=== PATIENT | male | born 1980 | race Caucasian/White ===

== ENCOUNTER → 2017-05-09 | Outpatient (CLI) | payer OTHER ==
--- NOTE | 2017-05-09 13:44 | US ---
EXAMINATION TYPE: US scrotum with doppler. Grayscale and color Doppler Duplex imaging performed of t he scrotum. DATE OF EXAM: 05/09/2017 COMPARISON: NONE CLINICAL HISTORY: N50.9 testicular mass. Palpable left testicular mass x 1 month EXAM MEASUREMENTS: TESTICLES: Right Testicle: 3.7 x 2.4 x 3.0 cm Left Testicle: 3.6 x 2.0 x 2.7 cm EPIDIDYMIS HEAD: Right Epididymis: 0.6 x 1.1 x 1.3 cm Left Epididymis: 0.7 x 1.0 x 1.2 cm Doppler performed to assess for testicular vascularity; good bilateral color flow and waveforms are s een. There is no evidence of testicular torsion. Presence of hydroceles: trace amount of fluid around bilateral testicles Presence of varicoceles: at patients palpable: prominent vessels inferior and posterior to left test icle that increase with valsalva IMPRESSION: 1. There are some vessels present the palpable region on the left compatible with varicoceles.
== END | disposition home or self-care (01) ==
LOC: RADUSWWP 12:35
PROVIDERS: ATTEND Family Medicine
DX: N50.9 Disorder of male genital organs, unspecified (principal)
CPT/HCPCS: 76870; 93975

== ENCOUNTER 2018-01-24 15:37 | Emergency (ER) | payer OTHER ==
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
[2018-01-24 19:03] VITALS: BP 105/76; PULSE 82; RESP 18; TEMP 98.6
== END 2018-01-24 19:00 | disposition home or self-care (01) ==
LOC: EC 15:37
DX: S09.90XA Unspecified injury of head, initial encounter (principal); Z79.899 Other long term (current) drug therapy; Z88.0 Allergy status to penicillin; Z88.8 Allergy status to other drugs, medicaments and biological substances; Z91.030 Bee allergy status; Y04.0XXA Assault by unarmed brawl or fight, initial encounter
CPT/HCPCS: 70450; 70486; 72125; 99284

== ENCOUNTER → 2019-12-17 | Outpatient (CLI) | payer OTHER ==
--- NOTE | 2019-12-17 10:33 | XR ---
EXAMINATION TYPE: XR wrist complete LT DATE OF EXAM: 12/17/2019 COMPARISON: 11/09/2019 HISTORY: 39-year-old male with left wrist pain TECHNIQUE: 3 views FINDINGS: Radiocarpal and distal radial ulnar joint as well as the midcarpal compartment appear intact. There m ay be some mild soft tissue swelling of the wrist. No acute fracture, subluxation, dislocation is see n. No periostitis or osteolysis. Slight spurring at the triscaphe joint. IMPRESSION: Minimal degenerative spurring at the triscaphe joint. There may be some mild soft tissue swelling at the wrist. No acute osseous abnormality seen.
== END | disposition home or self-care (01) ==
LOC: RADXRMAIN 10:10
PROVIDERS: ATTEND Family Medicine
DX: M25.732 Osteophyte, left wrist (principal)

== ENCOUNTER → 2020-01-29 | Outpatient (CLI) | payer OTHER ==
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
--- NOTE | 2020-01-30 06:45 | MR ---
EXAMINATION TYPE: MR knee RT wo con DATE OF EXAM: 01/29/2020 COMPARISON: Right knee x-ray November 09, 2019 HISTORY: Rt knee pain, crushing injury 11-08-19 TECHNIQUE: Multiplanar, multisequence imaging of the right knee is performed without IV contrast. FINDINGS: MEDIAL MENISCUS: Medial meniscus is markedly truncated. Central body is absent. Patient states no his tory of prior surgery. Oblique increased signal posterior horn sagittal image 7 appears to extend to inferior articular surface. LATERAL MENISCUS: Anterior and posterior horns are intact without tear. CRUCIATE LIGAMENTS: The posterior cruciate ligament is intact . Anterior cruciate ligament shows alvin ed thickening and abnormal signal without full-thickness tear. COLLATERAL LIGAMENTS: The medial collateral ligament and lateral collateral ligament complex are inta ct and unremarkable. EXTENSOR MECHANISM: Visualized quadriceps and patellar tendons are intact. EFFUSION: Tiny suprapatellar joint effusion. POPLITEAL CYST: No popliteal/rob cyst. TRICOMPARTMENT SPACES: More moderate tricompartment joint space loss and spurring. CARTILAGE: Some chondromalacia patella with fissuring of articular cartilage along the posterior razo llar pole. There is some thinning of articular cartilage medial tibiofemoral compartment. BONE MARROW SIGNAL: Nonaggressive rounded T2 hyperintense change lateral aspect lateral tibial platea u and lateral femoral condyle posteriorly. Suspect benign etiology. Some involvement of the fibular h ead noted. OTHER: No additional significant abnormality is appreciated. IMPRESSION: 1. Suspect significant complex displaced medial meniscal tear given lack of prior surgery with displa jaspal meniscal fragment not well identified. 2. Moderate tricompartment degenerative changes right knee somewhat prominent for patient's age and m ore significant than opposite left knee. 3. Myxoid degeneration and partial tear of the anterior cruciate ligament.
== END | disposition home or self-care (01) ==
LOC: RADMRIMAIN 18:47
PROVIDERS: ATTEND Family Medicine
DX: M17.0 Bilateral primary osteoarthritis of knee (principal); S83.512A Sprain of anterior cruciate ligament of left knee, initial encounter; M25.461 Effusion, right knee; M25.561 Pain in right knee

== ENCOUNTER 2020-02-03 08:38 | Inpatient (IN) | payer OTHER ==
[2020-01-30 11:16] VITALS: BMI 29.8
[~2020-02-03 08:38] MED LIST: ACETAMINOPHEN TAB 500 MG TAB PO PRN; DEXAMETHASONE SOD PHOSPHATE 4 MG/ML 1 ML VIAL IV ONE; HEPARIN SODIUM,PORCINE 5,000 UNIT/ML 1 ML VIAL SQ PRN; LIDOCAINE 1% (10MG/ML) FOR IV START INTRADERMA PRN; MIDAZOLAM 2 MG/2 ML VIAL IV PRN; ONDANSETRON 4 MG/2 ML VIAL IVP ONE
[2020-02-03] MEDS: LACTATED RINGERS 1,000 ML IV SCH (09:37)
--- NOTE | 2020-02-03 10:15 | P.GSHP ---
History of Present Illness H&P Date: 02/03/20 Chief Complaint: Incisional hernia This a 39-year-old male still incisional hernia. Patient presents today for open repair with mesh. Past Medical History Past Medical History: Asthma, GERD/Reflux Additional Past Medical History / Comment(s): meniscus tear, incisional hernia, hiatal hernia History of Any Multi-Drug Resistant Organisms: None Reported Past Surgical History: Bowel Resection, Hernia Repair, Tonsillectomy Additional Past Surgical History / Comment(s): CIRCUMCISION INFANT Past Anesthesia/Blood Transfusion Reactions: No Reported Reaction Smoking Status: Never smoker - Past Family History Mother Family Medical History: No Reported History Medications and Allergies Home Medications Medication Instructions Recorded Confirmed Type Albuterol Inhaler [Ventolin Hfa 1 puff INHALATION DAILY PRN 01/30/20 02/03/20 History Inhaler] Allergies Allergy/AdvReac Type Severity Reaction Status Date / Time Penicillins Allergy Unknown Verified 02/03/20 09:08 Childhood venom-honey bee Allergy Anaphylaxis Verified 02/03/20 09:08 atomoxetine HCl AdvReac Unknown Verified 02/03/20 09:08 [From Strattera] Surgical - Exam Vital Signs Temp Pulse Resp BP Pulse Ox 96.7 F L 72 16 122/77 97 02/03/20 08:59 02/03/20 08:59 02/03/20 08:59 02/03/20 08:59 02/03/20 08:59 - General well developed, well nourished, no distress - Eyes PERRL - ENT normal pinna - Neck no masses - Respiratory normal expansion - Cardiovascular Rhythm: regular - Abdomen Incisional hernia measured proximally 10 x 5 cm Abdomen: soft, non tender Assessment and Plan Assessment: Incisional hernia. We'll perform open repair with mesh.
[2020-02-03] MEDS ORDERED: NEOSTIGMINE 1 MG/ML 10 ML VIAL ONE (10:22)
[2020-02-03] MEDS ORDERED: fentaNYL (PF) 50 MCG/ML 2 ML AMP ONE (10:22)
[2020-02-03] MEDS ORDERED: PROPOFOL 10 MG/ML 20 ML VIAL IV ONE (10:22)
[2020-02-03] MEDS ORDERED: MIDAZOLAM 2 MG/2 ML VIAL ONE (10:22)
[2020-02-03] MEDS ORDERED: HYDROmorphone (PF) 1 MG/ML ONE (10:22)
[2020-02-03] MEDS ORDERED: SUCCINYLCHOLINE CHLORIDE 100 MG/5 ML SYR IV ONE (10:22)
[2020-02-03] MEDS ORDERED: GLYCOPYRROLATE 0.2 MG/ML 2 ML VIAL ONE (10:22)
[2020-02-03] MEDS ORDERED: LIDOCAINE 1% INJ 10MG/ML (20 ML MDV) ONE (10:22)
[2020-02-03] MEDS ORDERED: ROCURONIUM 10 MG/ML (10 ML VIAL) IV ONE (10:22)
[2020-02-03] MEDS ORDERED: HYDROmorphone 0.5 MG/0.5 ML SYRINGE IVP PRN (12:13)
[2020-02-03] MEDS ORDERED: ONDANSETRON 4 MG/2 ML VIAL IVP PRN (12:13)
[2020-02-03] MEDS ORDERED: LACTATED RINGERS 1,000 ML IV ONE ×2 (12:13→12:57)
[2020-02-03] MEDS ORDERED: NALOXONE 0.4 MG/ML 1 ML VIAL IV PRN (12:13)
[2020-02-03] MEDS: HYDROmorphone 0.5 MG/0.5 ML SYRINGE IVP PRN ×4 (12:40→13:22)
[2020-02-03] MEDS ORDERED: KETOROLAC 15 MG/ML 1 ML VIAL IVP ONE (13:30)
[2020-02-03] MEDS ORDERED: fentaNYL (PF) 50 MCG/ML 2 ML AMP IVP ONE (14:17)
--- NOTE | 2020-02-03 15:17 | P.OP ---
Date of Procedure: 02/03/20 Preoperative Diagnosis: Incisional hernia Postoperative Diagnosis: Incisional hernia Adhesions Procedure(s) Performed: (Repair of incisional hernia Lysis of adhesions Anesthesia: JOSEPHINE Surgeon: Joel Jackman Estimated Blood Loss (ml): 50 Pathology: none sent Condition: stable Disposition: PACU Description of Procedure: The patient's placed on the operative table in the supine position. He received general anesthesia. His abdomen was prepped and draped usual sterile fashion. The patient had a previous midline laparotomy scar. Incisional hernias located along the entire length the scar. The skin was incised and then using image cautery and the hernia sac was opened and then the adhesions of the hernia sac were lysed using sharp dissection. The fascial defect was then closed using 0 Ethibond suture. Both extremities close the fascial defect. And then a #1 strata 6 suture was used to also perform the repair. Once the fascia was repaired. A piece of Prolene mesh was placed over top apparent secured with the secure strap tacker. A DIRK drains placed over top the repair and brought through separate stab incision Gemma's fascia close [place]. Skin was closed niya. Patient top she will was sent to recovery room stable condition.
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
[2020-02-03] MEDS ORDERED: ALBUTEROL NEBULIZED 2.5 MG/3 ML INHALATION PRN (15:57)
[2020-02-03] MEDS: HYDROmorphone 1 MG/ML 1 ML SYRINGE IVP PRN ×2 (17:29→21:41)
[2020-02-03] MEDS: KETOROLAC 15 MG/ML 1 ML VIAL IVP SCH (19:03)
[2020-02-03] MEDS: SENNOSIDES-DOCUSATE SODIUM 1 EACH TAB PO SCH (21:41)
[2020-02-04] MEDS: KETOROLAC 15 MG/ML 1 ML VIAL IVP SCH ×4 (00:14→17:58)
[2020-02-04] MEDS: HYDROmorphone 1 MG/ML 1 ML SYRINGE IVP PRN ×7 (00:15→21:09)
[2020-02-04] MEDS: LACTATED RINGERS 1,000 ML IV SCH ×2 (04:17→07:23)
[2020-02-04] MEDS: polyethylene glycoL 3350 17 GM POWD.PACK PO SCH (09:22)
[2020-02-04] MEDS: SENNOSIDES-DOCUSATE SODIUM 1 EACH TAB PO SCH ×2 (09:23→20:21)
[2020-02-04] MEDS: ENOXAPARIN 40 MG/0.4 ML SYRINGE SQ SCH (09:23)
[2020-02-04] MEDS ORDERED: CALCIUM CARBONATE 500 MG CHEWABLE PO PRN (09:29)
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
[2020-02-04] MEDS: PANTOPRAZOLE 40 MG TABLET PO SCH (10:43)
[2020-02-04] MEDS ORDERED: HYDROcodone/APAP 5-325MG 1 EACH TAB PO PRN (14:35)
--- NOTE | 2020-02-04 14:45 | P.PN ---
Subjective Progress Note Date: 02/04/20 CHIEF COMPLAINT: Incisional hernia HISTORY OF PRESENT ILLNESS: Patient is status post repair of incisional hernia and lysis of adhesions. Patient has been requiring the IV Toradol and IV Dilaudid for pain control. He does not feel ready for discharge today. He denies any nausea or vomiting. He is passing gas. DIRK drain output this morning was 50 mL of serosanguineous fluid. Afebrile. Patient had been complaining of heartburn this morning and Tums was added. PHYSICAL EXAM: VITAL SIGNS: Reviewed. GENERAL: Well-developed in no acute distress. HEENT: No sclera icterus. Extraocular movements grossly intact. Moist buccal mucosa. Head is atraumatic, normocephalic. ABDOMEN: Soft. Mildly distended. Midline incision dressing has small area of saturation at the top of the dressing. Has DIRK drain with serosanguineous fluid NEUROLOGIC: Alert and oriented. Cranial nerves II through XII grossly intact. ASSESSMENT: 1. Incisional hernia status post repair of incisional hernia and lysis of adhesions. Postop day #1 PLAN: -We'll advance diet to regular for dinner -Continue pain medication as needed -Add [place] for oral pain medication -Encourage patient to ambulate and use incentive spirometer -GI prophylaxis Protonix and DVT prophylaxis Lovenox Physician Demolition Expert note has been reviewed by physician. Signing provider agrees with the documented findings, assessment, and plan of care. Objective - Vital Signs Vital signs: Vital Signs Temp 97.6 F 02/04/20 13:35 Pulse 77 02/04/20 13:35 Resp 20 02/04/20 13:35 BP 139/87 02/04/20 13:35 Pulse Ox 97 02/04/20 13:35 Intake & Output 02/03/20 02/04/20 02/04/20 18:59 06:59 18:59 Intake Total 1800 Output Total 250 50 Balance 1550 -50 Weight 95.8 kg Intake: IV 1800 Output: Drainage 100 50 Left Medial Abdomen 100 50 Estimated Blood Loss 150 Other: # Voids 4 # Bowel Movements 0
[2020-02-05] MEDS: KETOROLAC 15 MG/ML 1 ML VIAL IVP SCH ×2 (00:18→06:07)
[2020-02-05] MEDS: HYDROmorphone 1 MG/ML 1 ML SYRINGE IVP PRN ×3 (00:19→07:29)
[2020-02-05 01:19] VITALS: RESP 16
[2020-02-05 05:42] LABS: Basophils % (A) 0 %; Eosinophils # (A) 0.3 k/uL (0-0.7); Eosinophils % (A) 4 %; HCT 37.4 % (39.0-53.0); HGB 12.6 gm/dL (13.0-17.5); Lymphocytes # (A) 1.7 k/uL (1.0-4.8); Lymphocytes % (A) 25 %; MCH 28.4 pg (25.0-35.0); MCHC 33.7 g/dL (31.0-37.0); MCV 84.3 fL (80.0-100.0); Mean Platelet Volume 6.8; Monocytes # (A) 0.4 k/uL (0-1.0); Monocytes % (A) 6 %; Neutrophils # (A) 4.2 k/uL (1.3-7.7); Neutrophils % (A) 63 %; Platelet Count 214 k/uL (150-450); RBC 4.43 m/uL (4.30-5.90); RDW 13.1 % (11.5-15.5); WBC 6.7 k/uL (3.8-10.6)
[2020-02-05] MEDS: PANTOPRAZOLE 40 MG TABLET PO SCH (07:30)
[2020-02-05] MEDS: SENNOSIDES-DOCUSATE SODIUM 1 EACH TAB PO SCH (07:30)
[2020-02-05 07:59] VITALS: BP 120/77; PULSE 86; TEMP 97.6
[2020-02-05] MEDS: ENOXAPARIN 40 MG/0.4 ML SYRINGE SQ SCH (10:38)
[2020-02-05] MEDS: polyethylene glycoL 3350 17 GM POWD.PACK PO SCH (10:39)
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
[2020-02-05 11:21] LABS: African American GFR (CKD) 122.5 (60.0-200.0); Anion Gap 4.6 mmol/L (4.00-12.00); BUN/Creat Ratio 12.22 Ratio (12.00-20.00); Calcium 8.8 mg/dL (8.7-10.3); Carbon Dioxide 30.4 mmol/L (21.6-31.8); Non-African American GFR(CKD) 105.7 (60.0-200.0); Potassium 4.5 mmol/L (3.5-5.5)
--- NOTE | 2020-02-05 11:26 | P.DS ---
Providers Date of admission: 02/05/20 09:22 Expected date of discharge: 02/05/20 Attending physician: Joel Jackman Consults: 02/03/20 12:13 Consult Physician Routine Consulting Provider: Tali Lechuga Consult Reason/Comments: med manage Do you want consulting provider notified?: Yes Primary care physician: Taco Alexander Hospital Course: Discharge diagnosis 1. Incisional hernia status post repair of incisional hernia and lysis of adhesions Hospital course This is a 39-year-old male with a incisional hernia who is now status post repair of incisional hernia and lysis of adhesions. Patient tolerated surgery well. His pain is controlled. He denies any nausea or vomiting. He reports having bowel movement. He is tolerating diet. He is afebrile. He has been up and ambulating. Patient is stable for discharge home. Physician Vice President Integrated note has been reviewed by physician. Signing provider agrees with the documented findings, assessment, and plan of care. Patient Condition at Discharge: Stable Plan - Discharge Summary Discharge Rx Participant: No New Discharge Prescriptions: New Docusate [Colace] 100 mg PO BID #30 capsule Hydrocodone/Acetaminophen [[place] 5-325] 1 tab PO Q6HR PRN 3 Days #12 tab PRN Reason: Pain Continue Albuterol Inhaler [Ventolin Hfa Inhaler] 1 puff INHALATION DAILY PRN PRN Reason: Dyspnea Discharge Medication List Albuterol Inhaler [Ventolin Hfa Inhaler] 1 puff INHALATION DAILY PRN 01/30/20 [History] Docusate [Colace] 100 mg PO BID #30 capsule 02/05/20 [Rx] Hydrocodone/Acetaminophen [[place] 5-325] 1 tab PO Q6HR PRN 3 Days #12 tab 02/05/20 [Rx] Follow up Appointment(s)/Referral(s): Joel Jackman MD [STAFF PHYSICIAN] - 02/11/20 2:15 pm Activity/Diet/Wound Care/Special Instructions: No driving while taking [place] No lifting over 10 pounds You may shower. No soaking or tub baths for 2 weeks Very light activity until you are reevaluated at your follow up appointment with your surgeon Diet regular Discharge Disposition: HOME SELF-CARE
--- NOTE | 2020-02-07 01:01 | CDI ---
Documentation Clarification Form Date: 02/07/2020 From: Jay Jay Dozier Phone: Phone: If you have a question about this query, please contact Patricia Dobson, Forest And Conservation Worker at [phone] between 8am and 5pm. Admit Date: 02/05/2020 09:22:00 AM Patient Name: Jose Barba Visit Number: [id number] Discharge Date: 02/05/2020 01:02:00 PM ATTENTION: The Clinical Documentation Specialists (CDI) and [facility] Coding Staff appreciate your assistance in clarifying documentation. Please respond to the clarification below the line at the bottom and electronically sign. The CDI & [facility] Coding staff will review the response and follow-up if needed. Please note: Queries are made part of the Legal Health Record. If you have any questions, please contact the author of this message via ITS. Dr. Cameron Shaikh MD., Asthma is documented in the past medical history and your notes as Asthama. History/risk factors: Bronchospasm, GERD, Incisional hernia Other Clinical Indicators: This is a 39-year-old male with a incisional hernia who is now status post repair of incisional hernia and lysis of adhesions.Patient tolerated surgery well Treatment: Albuterol Inhaler PRN Medication: Albuterol Inhaler [Ventolin Hfa Inhaler] 1 puff INHALATION DAILY PRN 01/30/20 In your professional opinion, can you please further specify the following, if known? With Acute Exacerbation Status asthmaticus Other, please specify ___ Unable to determine Severity Mild intermittent Mild persistent Moderate persistent Severe persistent Other, please specify ____ Unable to determine Exercise induced MTDD
== END 2020-02-05 13:02 | disposition home or self-care (01) | DRG 355 ==
LOC: OR 08:38 → 5NMEDONC 12:15 → OR 23:11 → 5NMEDONC 23:41 → OBSVTOIN 02-05 09:22
PROVIDERS: ADMIT Surgery; ATTEND Surgery
PROC: 0WUF0JZ Supplement Abdominal Wall with Synthetic Substitute, Open Approach (ICD-10-PCS; principal; 2020-02-03 10:00)
DX: K43.2 Incisional hernia without obstruction or gangrene (principal); J45.990 Exercise induced bronchospasm; K21.9 Gastro-esophageal reflux disease without esophagitis; Z79.899 Other long term (current) drug therapy; Z90.89 Acquired absence of other organs; Z90.49 Acquired absence of other specified parts of digestive tract; Z98.890 Other specified postprocedural states; Z88.0 Allergy status to penicillin; Z88.8 Allergy status to other drugs, medicaments and biological substances; Z91.030 Bee allergy status
CPT/HCPCS: 80048; 85025

== ENCOUNTER → 2020-04-28 | Outpatient (CLI) | payer OTHER ==
[2020-04-28 10:50] LABS: HCT 42.9 % (39.0-53.0); HGB 14.4 gm/dL (13.0-17.5); MCH 27.9 pg (25.0-35.0); MCHC 33.6 g/dL (31.0-37.0); MCV 83.3 fL (80.0-100.0); Mean Platelet Volume 7.2; Platelet Count 214 k/uL (150-450); RBC 5.16 m/uL (4.30-5.90); RDW 13.5 % (11.5-15.5); WBC 6.7 k/uL (3.8-10.6)
[2020-04-28 10:58] LABS: Potassium 4.4 mmol/L (3.5-5.1)
== END ==
LOC: LABPAT 10:03
PROVIDERS: ATTEND Orthopaedic Surgery
DX: Z01.812 Encounter for preprocedural laboratory examination (principal); M23.91 Unspecified internal derangement of right knee
CPT/HCPCS: 80051; 85027

== ENCOUNTER 2020-05-01 06:56 | Day surgery (SDC) | payer OTHER ==
[2020-04-27 10:17] VITALS: BMI 29.1
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
[~2020-05-01 06:56] MED LIST changes: -ACETAMINOPHEN TAB 500 MG TAB PO PRN; -HEPARIN SODIUM,PORCINE 5,000 UNIT/ML 1 ML VIAL SQ PRN; +LACTATED RINGERS 1,000 ML IV SCH; -LIDOCAINE 1% (10MG/ML) FOR IV START INTRADERMA PRN; +SCOPOLAMINE 1.5MG/72HR PATCH TRANSDERM ONE
[2020-05-01] MEDS ORDERED: LACTATED RINGERS 1,000 ML IV ONE ×3 (07:18→08:35)
[2020-05-01] MEDS ORDERED: LIDOCAINE 1% (10MG/ML) FOR IV START INTRADERMA ONE (07:40)
[2020-05-01] MEDS ORDERED: SUCCINYLCHOLINE CHLORIDE 100 MG/5 ML SYR IV ONE (07:51)
[2020-05-01] MEDS ORDERED: LIDOCAINE 1% INJ 10MG/ML (20 ML MDV) ONE (07:51)
[2020-05-01] MEDS ORDERED: fentaNYL (PF) 50 MCG/ML 2 ML AMP ONE (07:51)
[2020-05-01] MEDS ORDERED: PROPOFOL 10 MG/ML 20 ML VIAL IV ONE (07:51)
[2020-05-01] MEDS ORDERED: MIDAZOLAM 2 MG/2 ML VIAL ONE (07:51)
[2020-05-01] MEDS ORDERED: HYDROmorphone (PF) 1 MG/ML ONE (07:51)
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
[2020-05-01 09:02] VITALS: TEMP 97.6
[2020-05-01] MEDS: HYDROmorphone 0.5 MG/0.5 ML SYRINGE IVP PRN ×3 (09:15→09:41)
[2020-05-01] MEDS ORDERED: KETOROLAC 15 MG/ML 1 ML VIAL IVP ONE (09:17)
[2020-05-01] MEDS ORDERED: HYDROcodone/APAP 5-325MG 1 EACH TAB ONE (10:31)
[2020-05-01] MEDS ORDERED: HYDROcodone/APAP 5-325MG 1 EACH TAB PO ONE (10:32)
[2020-05-01 11:03] VITALS: BP 129/77; PULSE 90; RESP 16
== END 2020-05-01 11:51 | disposition home or self-care (01) ==
LOC: OR 06:56
PROVIDERS: ATTEND Orthopaedic Surgery
DX: S83.241A Other tear of medial meniscus, current injury, right knee, initial encounter (principal); S83.511A Sprain of anterior cruciate ligament of right knee, initial encounter; V89.2XXA Person injured in unspecified motor-vehicle accident, traffic, initial encounter; F98.8 Other specified behavioral and emotional disorders with onset usually occurring in childhood and adolescence; J45.909 Unspecified asthma, uncomplicated; K21.9 Gastro-esophageal reflux disease without esophagitis; K44.9 Diaphragmatic hernia without obstruction or gangrene; Z98.890 Other specified postprocedural states; Z80.9 Family history of malignant neoplasm, unspecified; Z84.1 Family history of disorders of kidney and ureter; Z84.89 Family history of other specified conditions; Z79.1 Long term (current) use of non-steroidal anti-inflammatories (NSAID); Z79.891 Long term (current) use of opiate analgesic; Z88.0 Allergy status to penicillin; Z88.8 Allergy status to other drugs, medicaments and biological substances; Z91.030 Bee allergy status
CPT/HCPCS: 29881; J2250; J1100; J0690; J2405; J2001; J3010; J1170 ×2; J1885; J0330; J2704

== ENCOUNTER 2020-09-02 | Emergency (ER) | payer OTHER, MEDICARE | END 2020-09-02 11:04 | disposition home or self-care (01) | CPT/HCPCS: 99283 ==

== ENCOUNTER 2021-01-11 20:15 | Emergency (ER) | payer OTHER ==
[2021-01-11 22:23] VITALS: BP 131/75; PULSE 94; RESP 20
[2021-01-11] MEDS ORDERED: IBUPROFEN 800 MG TAB PO STA (22:30)
[2021-01-11] MEDS ORDERED: ONDANSETRON ODT 4 MG TAB PO STA (22:30)
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
[2021-01-11] MEDS ORDERED: CASIRIVIMAB (REGN10933) (EUA) 600 MG, IMDEVIMAB (REGN10987) (EUA) 600 MG in SODIUM CHLO... IVPB ONE (23:00)
[2021-01-11] MEDS ORDERED: SODIUM CHLORIDE 0.9% 50 ML IVPB ONE (23:00)
[2021-01-12 00:37] VITALS: TEMP 98.4
== END 2021-01-12 00:37 | disposition home or self-care (01) ==
LOC: EC 20:15
DX: U07.1 COVID-19 (principal); J45.909 Unspecified asthma, uncomplicated; K21.9 Gastro-esophageal reflux disease without esophagitis; F90.9 Attention-deficit hyperactivity disorder, unspecified type; F12.90 Cannabis use, unspecified, uncomplicated; Z88.0 Allergy status to penicillin; Z90.89 Acquired absence of other organs
CPT/HCPCS: 99283; 96365; 87635; Q0243

== ENCOUNTER 2023-10-12 09:00 | Day surgery (SDC) | payer OTHER ==
[~2023-10-12 09:00] MED LIST changes: -DEXAMETHASONE SOD PHOSPHATE 4 MG/ML 1 ML VIAL IV ONE; +GLYCOPYRROLATE 0.2 MG/ML 2 ML VIAL ONE; +LACTATED RINGERS 1,000 ML BAG ONE; -LACTATED RINGERS 1,000 ML IV SCH; +LIDOCAINE 1% INJ 10MG/ML (20 ML MDV) ONE; -MIDAZOLAM 2 MG/2 ML VIAL IV PRN; -ONDANSETRON 4 MG/2 ML VIAL IVP ONE; +PROPOFOL 10 MG/ML 20 ML VIAL IV ONE; -SCOPOLAMINE 1.5MG/72HR PATCH TRANSDERM ONE
--- NOTE | 2023-10-20 15:54 | OP ---
OPERATIVE REPORT DATE OF SERVICE : 10/12/2023 PROCEDURE: Colonoscopy. PREOPERATIVE DIAGNOSIS: Gastrointestinal bleed. POSTOPERATIVE DIAGNOSIS: Internal and external hemorrhoids. ANESTHESIA: MAC. DESCRIPTION OF PROCEDURE: The patient was placed on the endoscopy table in the lateral position. He received IV sedation. A digital rectal exam was performed, which showed a few internal and external hemorrhoids. The flexible colonoscope was then placed through the anus and passed throughout the entire colon. The ileocecal valve was visualized. The cecum, ascending, and transverse colon appeared normal. The descending and sigmoid colon appeared normal. Scope was brought back to the rectum. This appeared normal. The scope was brought to the anus. The patient tolerated the procedure well. MMODL / IJN: [id number] /
== END 2023-10-12 09:30 ==
LOC: ORWHC2ENDO 09:00
PROVIDERS: ATTEND Surgery
DX: K64.8 Other hemorrhoids (principal); K64.4 Residual hemorrhoidal skin tags; F90.9 Attention-deficit hyperactivity disorder, unspecified type; K21.9 Gastro-esophageal reflux disease without esophagitis; Z79.899 Other long term (current) drug therapy; Z88.8 Allergy status to other drugs, medicaments and biological substances
CPT/HCPCS: 45378

== ENCOUNTER → 2024-05-24 | Outpatient (CLI) | payer OTHER ==
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
== END | disposition home or self-care (01) ==
LOC: RADMRIMAIN 19:45
PROVIDERS: ATTEND Orthopaedic Surgery
DX: S83.242A Other tear of medial meniscus, current injury, left knee, initial encounter (principal); M17.12 Unilateral primary osteoarthritis, left knee; M67.462 Ganglion, left knee; V89.2XXA Person injured in unspecified motor-vehicle accident, traffic, initial encounter